=== PATIENT | female | born 1955 | race Caucasian/White ===

== ENCOUNTER → 2016-10-23 | Outpatient (CLI) | payer MEDICAID ==
--- NOTE | 2016-10-23 11:17 | US ---
Complete Pelvic Sonography (Transabdominal and Endovaginal) Clinical History: 60-year-old female with a history of a cervical polyp and nabothian cyst removal, p ostmenopausal for 5 to 6 years, and not on hormone replacement therapy. ICD-10 Diagnostic Code: N84.1. Technique: A curvilinear 5 MHz transducer was used to sonographically evaluate the pelvis, using a mo derately distended urinary bladder as a window. To better assess the uterine architecture and the adn exal structures, endovaginal pelvic sonography was also performed. Color Doppler and spectral Doppler are used. Comparison Study: Pelvic sonography, dated April 20, 2015. Findings: Transabdominal Pelvic Sonography: The uterus measures 7.4 x 4.4 x 3.8 cm, and is mildly anteverted. T he right and left adnexal regions are obscured by bowel gas. There is no free fluid. Endovaginal Pelvic Sonography: At the level of the cervix, there is a dominant right posterior benign avascular nabothian cyst with some minimal debris, measuring 1.1 x 0.8 x 1.1 cm, and previously judson uring 1.2 x 1.2 x 0.8 cm. There is no cervical polyp identified. The endometrial thickness is 5.8 mm (and previously measured 6.3 mm in April 2015). There is no focal myometrial abnormality. The right ov flavia is not identified. The left ovary measures 2.0 x 1.0 x 2.0 cm. Intraovarian vascular flow is docu mented, with a resistive index of 0.48. There is no adnexal mass, however, there are some prominent s erpentine-shaped veins on the left side measuring up to 6.2 mm in diameter, consistent with pelvic ve nous congestion. These were also noted previously. There is no free fluid. Impression: 1. Stable endometrial thickness, compared to April 20, 2015. 2. There is no focal fibroid. 3. Stable appearance of the nabothian cyst, with no endocervical polyp observed. 4. Nonvisualization of the right ovary, despite transabdominal and endovaginal protocols. There is a normal appearance of the left ovary. 5. Left-sided pelvic venous congestion.
== END ==
LOC: FIMAGING 09:53
DX: N88.8 Other specified noninflammatory disorders of cervix uteri (principal); I86.2 Pelvic varices; Z78.0 Asymptomatic menopausal state

== ENCOUNTER → 2017-02-25 | Outpatient (CLI) | payer MEDICAID | LOC: FIMAGING 09:57 | DX: Z12.31 Encounter for screening mammogram for malignant neoplasm of breast (principal); Z80.3 Family history of malignant neoplasm of breast | CPT/HCPCS: G0202 ==

== ENCOUNTER → 2017-12-30 | Outpatient (CLI) | payer MEDICAID ==
[~2017-12-30] MED LIST: LIDOCAINE 1% 300 MG/30 ML SDV ONE
--- NOTE | 2017-12-30 10:38 | PDRADPN ---
Radiology Procedure Note Date of Procedure: 12/30/17 Radiologist: Ted Ram Anesthesia: Local (Specify) Pre-op Diagnosis: 2cm inferior left thyroid nodule Post-op Diagnosis: same Indication: nodule meets criteria for FNA Procedure: US guided FNA Finding(s): hypoechoic 20mm inferior left thyroid nodule targeted for FNA, 4 passes with 25G needle Inf/Abcess present in the surg proc area at time of surgery?: No Depth: Superfical (Skin SQ) EBL: Minimal Specimen(s): Four 25G FNA
== END ==
LOC: FIMAGING 09:35
PROC: 0G9K3ZX Drainage of Thyroid Gland, Percutaneous Approach, Diagnostic (ICD-10-PCS; principal; 2017-12-30)
DX: E04.1 Nontoxic single thyroid nodule (principal)

== ENCOUNTER → 2018-03-04 | Outpatient (CLI) | payer MEDICAID | LOC: FIMAGING 13:28 | DX: Z12.31 Encounter for screening mammogram for malignant neoplasm of breast (principal) ==